=== PATIENT | male | born 1950 | race Caucasian/White ===

== ENCOUNTER → 2016-08-10 | Outpatient (CLI) | payer OTHER ==
[~2016-08-10] MED LIST: ALDACTONE 25MG25 MG PO; ASPIR 8181 MG PO; CORLANOR PO; COUMADIN5 MG PO; K-DUR TAB 20 M20 MEQ PO; LANOXIN TAB 00.25 MG PO; LASIX20 MG PO; LEVAQUIN TAB 5500 MG PO; LISINOPRIL20 MG PO; LOPRESSOR100 MG PO; LOVASTATIN10 MG PO; MYCOSTATIN POWD15 GM EXT
[2016-08-10 12:09] LABS: BUN/CREATININE RATIO 18 (0-10)
== END ==
LOC: LAB 10:51
PROVIDERS: Family Medicine
DX: I42.9 Cardiomyopathy, unspecified (principal); R60.9 Edema, unspecified; I50.9 Heart failure, unspecified
CPT/HCPCS: 36415; 80053

== ENCOUNTER → 2016-11-16 | Outpatient (CLI) | payer OTHER ==
[2016-11-16 13:13] LABS: BUN/CREATININE RATIO 20 (0-10)
== END ==
LOC: LAB 11:58
PROVIDERS: Family Medicine
DX: E78.5 Hyperlipidemia, unspecified (principal); E55.9 Vitamin D deficiency, unspecified
CPT/HCPCS: 36415; 80053; 80061

== ENCOUNTER → 2021-08-16 | Outpatient (CLI) | payer OTHER ==
[~2021-08-16] MED LIST changes: +DILTIAZEM 24HR120 M1 PO; +ELIQUIS 5 MG TAB5 MG PO; +SYMBICORT 160-1 INHA INH; +VENTOLIN HFA 66.7 GM INH
== END | disposition home or self-care (01) ==
LOC: WCC 08:12
PROC: 0JBP0ZZ Excision of Left Lower Leg Subcutaneous Tissue and Fascia, Open Approach (ICD-10-PCS; principal; 2021-08-16)
DX: I87.2 Venous insufficiency (chronic) (peripheral) (principal); L97.825 Non-pressure chronic ulcer of other part of left lower leg with muscle involvement without evidence of necrosis; L97.222 Non-pressure chronic ulcer of left calf with fat layer exposed; I11.0 Hypertensive heart disease with heart failure; I50.9 Heart failure, unspecified; J44.9 Chronic obstructive pulmonary disease, unspecified; I48.91 Unspecified atrial fibrillation; I82.402 Acute embolism and thrombosis of unspecified deep veins of left lower extremity; R53.83 Other fatigue; I20.9 Angina pectoris, unspecified; L08.9 Local infection of the skin and subcutaneous tissue, unspecified; F17.210 Nicotine dependence, cigarettes, uncomplicated; Z79.01 Long term (current) use of anticoagulants; Z79.82 Long term (current) use of aspirin; Z79.899 Other long term (current) drug therapy; Z86.73 Personal history of transient ischemic attack (TIA), and cerebral infarction without residual deficits; Z88.5 Allergy status to narcotic agent; Z88.6 Allergy status to analgesic agent

== ENCOUNTER → 2021-08-23 | Outpatient (CLI) | payer OTHER | END | disposition home or self-care (01) | LOC: WCC 08:01 | DX: I87.2 Venous insufficiency (chronic) (peripheral) (principal); L97.822 Non-pressure chronic ulcer of other part of left lower leg with fat layer exposed; R60.0 Localized edema; I20.9 Angina pectoris, unspecified; I11.0 Hypertensive heart disease with heart failure; I50.9 Heart failure, unspecified; I48.91 Unspecified atrial fibrillation; I82.402 Acute embolism and thrombosis of unspecified deep veins of left lower extremity; J44.9 Chronic obstructive pulmonary disease, unspecified; L08.9 Local infection of the skin and subcutaneous tissue, unspecified; F17.210 Nicotine dependence, cigarettes, uncomplicated; Z79.01 Long term (current) use of anticoagulants; Z79.82 Long term (current) use of aspirin; Z79.899 Other long term (current) drug therapy ==

== ENCOUNTER → 2021-08-31 | Outpatient (CLI) | payer OTHER | LOC: WCC 07:33 | DX: I82.402 Acute embolism and thrombosis of unspecified deep veins of left lower extremity (principal); I87.2 Venous insufficiency (chronic) (peripheral); L97.822 Non-pressure chronic ulcer of other part of left lower leg with fat layer exposed; L97.222 Non-pressure chronic ulcer of left calf with fat layer exposed; I20.9 Angina pectoris, unspecified; I48.91 Unspecified atrial fibrillation; J44.9 Chronic obstructive pulmonary disease, unspecified; R53.83 Other fatigue; I10 Essential (primary) hypertension; L08.9 Local infection of the skin and subcutaneous tissue, unspecified; Z72.0 Tobacco use; Z88.6 Allergy status to analgesic agent; Z79.01 Long term (current) use of anticoagulants; Z79.899 Other long term (current) drug therapy ==

== ENCOUNTER → 2021-09-01 | Outpatient (CLI) | payer OTHER | LOC: HEART 5 13:11 | DX: L97.222 Non-pressure chronic ulcer of left calf with fat layer exposed (principal); L97.825 Non-pressure chronic ulcer of other part of left lower leg with muscle involvement without evidence of necrosis; R60.0 Localized edema; I20.9 Angina pectoris, unspecified; I48.91 Unspecified atrial fibrillation; I10 Essential (primary) hypertension; I82.402 Acute embolism and thrombosis of unspecified deep veins of left lower extremity; J44.9 Chronic obstructive pulmonary disease, unspecified; K21.9 Gastro-esophageal reflux disease without esophagitis; L08.9 Local infection of the skin and subcutaneous tissue, unspecified; R53.83 Other fatigue; F17.200 Nicotine dependence, unspecified, uncomplicated; Z79.01 Long term (current) use of anticoagulants | CPT/HCPCS: 93925; 93970 ==

== ENCOUNTER → 2021-09-07 | Outpatient (CLI) | payer OTHER | END | disposition home or self-care (01) | LOC: WCC 08:53 | DX: I87.2 Venous insufficiency (chronic) (peripheral) (principal); L97.825 Non-pressure chronic ulcer of other part of left lower leg with muscle involvement without evidence of necrosis; L97.822 Non-pressure chronic ulcer of other part of left lower leg with fat layer exposed; I82.402 Acute embolism and thrombosis of unspecified deep veins of left lower extremity; R60.0 Localized edema; I20.9 Angina pectoris, unspecified; I48.91 Unspecified atrial fibrillation; I11.0 Hypertensive heart disease with heart failure; I50.9 Heart failure, unspecified; J44.9 Chronic obstructive pulmonary disease, unspecified; L08.9 Local infection of the skin and subcutaneous tissue, unspecified; R53.83 Other fatigue; F17.210 Nicotine dependence, cigarettes, uncomplicated; Z79.01 Long term (current) use of anticoagulants; Z79.899 Other long term (current) drug therapy ==

== ENCOUNTER → 2021-09-21 | Outpatient (CLI) | payer OTHER | LOC: WCC 08:41 | DX: I82.402 Acute embolism and thrombosis of unspecified deep veins of left lower extremity (principal); I87.2 Venous insufficiency (chronic) (peripheral); L97.822 Non-pressure chronic ulcer of other part of left lower leg with fat layer exposed; L97.222 Non-pressure chronic ulcer of left calf with fat layer exposed; R60.0 Localized edema; I20.9 Angina pectoris, unspecified; I48.91 Unspecified atrial fibrillation; J44.9 Chronic obstructive pulmonary disease, unspecified; R53.83 Other fatigue; I11.0 Hypertensive heart disease with heart failure; I50.9 Heart failure, unspecified; L08.9 Local infection of the skin and subcutaneous tissue, unspecified; Z72.0 Tobacco use; Z88.6 Allergy status to analgesic agent; Z88.5 Allergy status to narcotic agent; Z79.01 Long term (current) use of anticoagulants; Z79.899 Other long term (current) drug therapy ==

== ENCOUNTER → 2021-09-29 | Outpatient (CLI) | payer OTHER | END | disposition home or self-care (01) | LOC: WCC 08:14 | DX: I87.2 Venous insufficiency (chronic) (peripheral) (principal); L97.825 Non-pressure chronic ulcer of other part of left lower leg with muscle involvement without evidence of necrosis; L97.822 Non-pressure chronic ulcer of other part of left lower leg with fat layer exposed; R60.0 Localized edema; I20.9 Angina pectoris, unspecified; I48.91 Unspecified atrial fibrillation; J44.9 Chronic obstructive pulmonary disease, unspecified; I82.402 Acute embolism and thrombosis of unspecified deep veins of left lower extremity; L08.9 Local infection of the skin and subcutaneous tissue, unspecified; I11.0 Hypertensive heart disease with heart failure; I50.9 Heart failure, unspecified; F17.210 Nicotine dependence, cigarettes, uncomplicated; Z79.01 Long term (current) use of anticoagulants; Z79.82 Long term (current) use of aspirin; Z79.899 Other long term (current) drug therapy ==

== ENCOUNTER → 2021-10-06 | Outpatient (CLI) | payer OTHER | END | disposition home or self-care (01) | LOC: WCC 07:28 | DX: I87.2 Venous insufficiency (chronic) (peripheral) (principal); L97.825 Non-pressure chronic ulcer of other part of left lower leg with muscle involvement without evidence of necrosis; R60.0 Localized edema; I20.9 Angina pectoris, unspecified; I48.91 Unspecified atrial fibrillation; I82.402 Acute embolism and thrombosis of unspecified deep veins of left lower extremity; I11.0 Hypertensive heart disease with heart failure; I50.9 Heart failure, unspecified; J44.9 Chronic obstructive pulmonary disease, unspecified; F17.210 Nicotine dependence, cigarettes, uncomplicated; R53.83 Other fatigue; Z79.01 Long term (current) use of anticoagulants; Z79.82 Long term (current) use of aspirin; Z79.899 Other long term (current) drug therapy ==

== ENCOUNTER → 2021-10-13 | Outpatient (CLI) | payer OTHER | LOC: WCC 08:17 | DX: L97.825 Non-pressure chronic ulcer of other part of left lower leg with muscle involvement without evidence of necrosis (principal); L97.822 Non-pressure chronic ulcer of other part of left lower leg with fat layer exposed; R60.0 Localized edema; I20.9 Angina pectoris, unspecified; I48.91 Unspecified atrial fibrillation; J44.9 Chronic obstructive pulmonary disease, unspecified; R53.83 Other fatigue; I82.402 Acute embolism and thrombosis of unspecified deep veins of left lower extremity; I11.0 Hypertensive heart disease with heart failure; I50.9 Heart failure, unspecified; Z79.01 Long term (current) use of anticoagulants; Z72.0 Tobacco use; Z86.73 Personal history of transient ischemic attack (TIA), and cerebral infarction without residual deficits; Z79.82 Long term (current) use of aspirin; Z88.6 Allergy status to analgesic agent; Z88.5 Allergy status to narcotic agent ==

== ENCOUNTER → 2021-10-20 | Outpatient (CLI) | payer OTHER | LOC: WCC 07:20 | DX: L97.825 Non-pressure chronic ulcer of other part of left lower leg with muscle involvement without evidence of necrosis (principal); R60.0 Localized edema; I20.9 Angina pectoris, unspecified; I48.91 Unspecified atrial fibrillation; J44.9 Chronic obstructive pulmonary disease, unspecified; R53.83 Other fatigue; I82.402 Acute embolism and thrombosis of unspecified deep veins of left lower extremity; L08.9 Local infection of the skin and subcutaneous tissue, unspecified; I11.0 Hypertensive heart disease with heart failure; I50.9 Heart failure, unspecified; Z79.01 Long term (current) use of anticoagulants; Z72.0 Tobacco use; Z86.73 Personal history of transient ischemic attack (TIA), and cerebral infarction without residual deficits; Z79.82 Long term (current) use of aspirin; Z88.6 Allergy status to analgesic agent; Z88.5 Allergy status to narcotic agent | CPT/HCPCS: 87070; 87077; 87186; 87205 ==

== ENCOUNTER → 2021-10-27 | Outpatient (CLI) | payer OTHER | LOC: WCC 07:31 | DX: L97.825 Non-pressure chronic ulcer of other part of left lower leg with muscle involvement without evidence of necrosis (principal); R60.0 Localized edema; I20.9 Angina pectoris, unspecified; I48.91 Unspecified atrial fibrillation; J44.9 Chronic obstructive pulmonary disease, unspecified; R53.83 Other fatigue; I82.402 Acute embolism and thrombosis of unspecified deep veins of left lower extremity; L08.9 Local infection of the skin and subcutaneous tissue, unspecified; I10 Essential (primary) hypertension; I11.0 Hypertensive heart disease with heart failure; I50.9 Heart failure, unspecified; Z79.01 Long term (current) use of anticoagulants; Z72.0 Tobacco use; Z86.73 Personal history of transient ischemic attack (TIA), and cerebral infarction without residual deficits; Z79.82 Long term (current) use of aspirin; Z88.5 Allergy status to narcotic agent; Z88.8 Allergy status to other drugs, medicaments and biological substances ==

== ENCOUNTER → 2021-11-03 | Outpatient (CLI) | payer OTHER | LOC: WCC 07:52 | DX: I82.402 Acute embolism and thrombosis of unspecified deep veins of left lower extremity (principal); I87.2 Venous insufficiency (chronic) (peripheral); L97.222 Non-pressure chronic ulcer of left calf with fat layer exposed; L97.822 Non-pressure chronic ulcer of other part of left lower leg with fat layer exposed; R60.0 Localized edema; I20.9 Angina pectoris, unspecified; I48.91 Unspecified atrial fibrillation; J44.9 Chronic obstructive pulmonary disease, unspecified; R53.83 Other fatigue; L08.9 Local infection of the skin and subcutaneous tissue, unspecified; Z79.01 Long term (current) use of anticoagulants; Z72.0 Tobacco use; I10 Essential (primary) hypertension; Z88.5 Allergy status to narcotic agent; Z88.8 Allergy status to other drugs, medicaments and biological substances ==

== ENCOUNTER → 2021-11-25 | Outpatient (CLI) | payer OTHER | LOC: WCC 09:26 | DX: L97.222 Non-pressure chronic ulcer of left calf with fat layer exposed (principal); L97.825 Non-pressure chronic ulcer of other part of left lower leg with muscle involvement without evidence of necrosis; R60.0 Localized edema; I20.9 Angina pectoris, unspecified; I48.91 Unspecified atrial fibrillation; J44.9 Chronic obstructive pulmonary disease, unspecified; R53.83 Other fatigue; I82.402 Acute embolism and thrombosis of unspecified deep veins of left lower extremity; L08.9 Local infection of the skin and subcutaneous tissue, unspecified; I11.0 Hypertensive heart disease with heart failure; I50.9 Heart failure, unspecified; Z79.01 Long term (current) use of anticoagulants; Z72.0 Tobacco use; Z86.73 Personal history of transient ischemic attack (TIA), and cerebral infarction without residual deficits; Z79.82 Long term (current) use of aspirin; Z88.5 Allergy status to narcotic agent; Z88.8 Allergy status to other drugs, medicaments and biological substances ==

== ENCOUNTER → 2021-12-15 | Outpatient (CLI) | payer OTHER | END | disposition home or self-care (01) | LOC: WCC 08:23 | DX: I87.2 Venous insufficiency (chronic) (peripheral) (principal); L97.822 Non-pressure chronic ulcer of other part of left lower leg with fat layer exposed; I11.0 Hypertensive heart disease with heart failure; I50.9 Heart failure, unspecified; J44.9 Chronic obstructive pulmonary disease, unspecified; I20.9 Angina pectoris, unspecified; I48.91 Unspecified atrial fibrillation; I82.402 Acute embolism and thrombosis of unspecified deep veins of left lower extremity; R53.83 Other fatigue; F17.210 Nicotine dependence, cigarettes, uncomplicated; Z79.01 Long term (current) use of anticoagulants; Z79.82 Long term (current) use of aspirin; Z79.899 Other long term (current) drug therapy ==

== ENCOUNTER → 2022-01-12 | Outpatient (CLI) | payer OTHER | LOC: WCC 06:58 | DX: I87.2 Venous insufficiency (chronic) (peripheral) (principal); L97.222 Non-pressure chronic ulcer of left calf with fat layer exposed; R60.0 Localized edema; I20.9 Angina pectoris, unspecified; I48.91 Unspecified atrial fibrillation; J44.9 Chronic obstructive pulmonary disease, unspecified; R53.83 Other fatigue; I82.402 Acute embolism and thrombosis of unspecified deep veins of left lower extremity; L08.9 Local infection of the skin and subcutaneous tissue, unspecified; I11.0 Hypertensive heart disease with heart failure; I50.9 Heart failure, unspecified; Z79.01 Long term (current) use of anticoagulants; Z72.0 Tobacco use; Z86.73 Personal history of transient ischemic attack (TIA), and cerebral infarction without residual deficits; Z79.82 Long term (current) use of aspirin; Z88.6 Allergy status to analgesic agent; Z88.5 Allergy status to narcotic agent ==

== ENCOUNTER → 2022-02-17 | Outpatient (CLI) | payer OTHER | LOC: WCC 08:08 | DX: I87.2 Venous insufficiency (chronic) (peripheral) (principal); L97.822 Non-pressure chronic ulcer of other part of left lower leg with fat layer exposed; I48.91 Unspecified atrial fibrillation; I20.9 Angina pectoris, unspecified; J44.9 Chronic obstructive pulmonary disease, unspecified; I10 Essential (primary) hypertension; Z79.01 Long term (current) use of anticoagulants; Z72.0 Tobacco use ==

== ENCOUNTER → 2022-03-03 | Outpatient (CLI) | payer OTHER | LOC: WCC 07:55 | DX: Z09 Encounter for follow-up examination after completed treatment for conditions other than malignant neoplasm (principal); I87.2 Venous insufficiency (chronic) (peripheral); R60.0 Localized edema; I20.9 Angina pectoris, unspecified; I48.91 Unspecified atrial fibrillation; J44.9 Chronic obstructive pulmonary disease, unspecified; R53.83 Other fatigue; I82.402 Acute embolism and thrombosis of unspecified deep veins of left lower extremity; L08.9 Local infection of the skin and subcutaneous tissue, unspecified; I10 Essential (primary) hypertension; Z79.01 Long term (current) use of anticoagulants; F17.210 Nicotine dependence, cigarettes, uncomplicated | CPT/HCPCS: G0463 ==